=== PATIENT | male | born 1980 | race African-American/Black ===

== ENCOUNTER 2016-11-20 06:50 | Emergency (ER) | payer SELFPAY ==
[2016-11-20] MEDS ORDERED: Dexamethasone 20 MG/5 ML VIAL ONE (07:18)
== END 2016-11-20 08:45 | disposition home or self-care (01) ==
LOC: NAV ERS 06:50
DX: K12.2 Cellulitis and abscess of mouth (principal); J03.90 Acute tonsillitis, unspecified
CPT/HCPCS: 87081; 87430; 96372; J1100

== ENCOUNTER 2017-05-02 14:09 | Emergency (ER) | payer SELFPAY ==
[2017-05-02] MEDS ORDERED: Acetaminophen 500 MG TAB ONE (14:28)
--- NOTE | 2017-05-02 15:12 | RAD ---
CHEST TWO VIEWS: History: Fever, chills, chest congestion. Comparison: None. FINDINGS: Normal cardiac silhouette. Pulmonary vessels and hilum are normal. No consolidation or mass. No pneum othorax or osseous abnormalities. IMPRESSION: No acute cardiopulmonary process. POS: [facility]
== END 2017-05-02 15:12 | disposition home or self-care (01) ==
LOC: NAV ERS 14:09
DX: J11.1 Influenza due to unidentified influenza virus with other respiratory manifestations (principal); F17.210 Nicotine dependence, cigarettes, uncomplicated
CPT/HCPCS: 71020; 99406

== ENCOUNTER 2018-01-30 17:09 | Emergency (ER) | payer SELFPAY ==
[~2018-01-30 17:09] MED LIST: Iopamidol 370 76% 100 ML VIAL ONE
[2018-01-30] MEDS ORDERED: Ondansetron HCl/PF 4 MG/2 ML Vial ONE (17:48)
[2018-01-30] MEDS ORDERED: Ketorolac Tromethamine 30 MG/ML VIAL ONE (17:48)
[2018-01-30] MEDS ORDERED: Sodium Chloride 0.9% 1,000 ML ONE (17:48)
[2018-01-30] MEDS ORDERED: Pantoprazole 40 MG VIAL ONE (17:51)
[2018-01-30 18:24] LABS: ALT (SGPT) 28 U/L (8-55); AST (SGOT) 24 U/L (5-34); Alkaline Phosphatase 84 U/L (40-150); Anion Gap 14 mmol/L (10-20); BUN (Urea Nitrogen) 14 mg/dL (8.9-20.6); Calc. Creatinine Clearance 0 mL/min (70-130); Calcium 10.7 mg/dL (7.8-10.44); Carbon Dioxide 25 mmol/L (22-29); Chloride 105 mmol/L (98-107); Estimated GFR-MDRD 89; Globulin 3.6 g/dL (2.4-3.5); Glucose 109 mg/dL (70-105); Lipase 7 U/L (8-78); Potassium 4.2 mmol/L (3.5-5.1); Protein, Total 8.6 g/dL (6.0-8.3); Sodium 140 mmol/L (136-145)
[2018-01-30 18:44] LABS: #Basophils 0.1 thou/uL (0.0-0.2); #Eosinphils 0.1 thou/uL (0.0-0.7); #Lymphocytes 0.8 thou/uL (1.20-3.40); #Monocytes 0.5 thou/uL (0.11-0.59); #Neutrophils 8.1 thou/uL (1.40-6.50); %Basophils 0.7 % (0.0-1.0); %Eosinophils 0.9 % (0.0-10.0); %Lymphocytes 8.8 % (21.0-51.0); %Monocytes 5.5 % (0.0-10.0); %Neutrophils 84.1 % (42.0-75.0); Hemoglobin 16.5 g/dL (14.0-18.0); Mean Corpuscular HGB CONC 30.3 g/dL (32.0-36.0); Mean Corpuscular Hemoglobin 27.1 pg (27.0-31.0); Mean Corpuscular Volume 89.4 fL (78.0-98.0); Platelet Count 254 thou/uL (130-400); RBC Distribution Width 11.1 % (11.5-14.5); White Blood Cell (WBC) Count 9.6 thou/uL (4.8-10.8)
[2018-01-30 19:51] LABS: Bilirubin Small (Negative); Blood, Urine Small (Negative); Glucose, Urine (Dipstick) Negative (Negative); Leukocyte Negative (Negative); Nitrite Negative (Negative); Protein, Urine (Dipstick) 100 mg/dL (Neg-Trace); Urobilinogen 0.2 mg/dL (0.2-1.0); pH, Urine 5.5 (5.0-9.0)
[2018-01-30 19:52] LABS: Clarity Hazy (Clear)
[2018-01-30 20:04] LABS: Specific Gravity, Urine 1.032 (1.002-1.036); Squamous Epithelial 0-3 HPF (0-3); WBC/HPF 0-3 HPF (0-3)
[2018-01-30 20:06] LABS: Crystals/HPF 3+ AMMN BIURATE HPF (Negative)
--- NOTE | 2018-01-30 20:14 | CT ---
CT OF BRAIN PERFORMED WITHOUT CONTRAST ENHANCEMENT: 01/30/18 HISTORY: Headache. The ventricular and cisternal system is within normal limits. There is no signs of intracerebral hemo rrhage or extra-axial fluid collections. The mastoid air cells and visualized sinuses are clear. Inci dental note is made of a left frontal scalp lipoma. IMPRESSION: No acute intracranial abnormalities. POS: [facility]
--- NOTE | 2018-01-30 20:42 | RAD ---
KUB: 01/30/18 HISTORY: Abdominal pain. The bowel gas pattern shows some dilated proximal small bowel loops raising the possibility of an ear ly small bowel obstruction. No free air demonstrated. No radiopaque calculi. There are calcifications in the left side of the pelvis which appear to represent phleboliths. IMPRESSION: Air fluid level with slight dilatation of some of the proximal small bowel raising the possibility of early obstruction versus a developing ileus. Clinical correlation is recommended. CT would be sugges bladimir as clinically indicated. POS: [facility]
--- NOTE | 2018-01-30 21:16 | CT ---
CONTRAST ENHANCED CT IMAGES OF THE ABDOMEN AND PELVIS 01/30/18 HISTORY: 38-year-old who presents with a history of abdominal pain. Evaluate for small bowel obstruction. The patient received 96 mL of Isovue 370 IV. Oral contrast unfortunately was not given which does decreas e the sensitivity for detection of pathology. The lung bases are unremarkable. No evidence of free intraperitoneal air seen. The liver and spleen are unremarkable. The gallbladder, pancreas, adrenal glands, and kidneys are unr emarkable. No evidence of periaortic lymphadenopathy seen. No dilated loops of small bowel seen. The colon demonstrates no significant evidence of distention. Osseous structures are intact without evidence of significant abnormalities. IMPRESSION: Unremarkable contrast enhanced CT images of the abdomen and pelvis. POS: [facility]
== END 2018-01-30 21:04 | disposition home or self-care (01) ==
LOC: NAV ERS 17:09
DX: K52.9 Noninfective gastroenteritis and colitis, unspecified (principal)
CPT/HCPCS: 70450; 74019; 74177; 80053; 81003; 81015; 82274; 83690; 85025; 87045; 87046; 87449; 87899; 96361; 96374; 96375; C9113; J1885; J2405; J7050